=== PATIENT | female | born 1950 | race Caucasian/White ===

== ENCOUNTER 2017-07-04 14:42 | Outpatient (CLI) | payer OTHER ==
--- NOTE | 2017-07-04 16:01 | MRI ---
THORACIC SPINE MRI NONCONTRAST: CLINICAL HISTORY: Chronic mid thoracic spine pain. COMPARISON: No prior imaging comparison available. FINDINGS: Patient motion degrades image quality and limits assessment. There are multilevel disk bulges throug hout the thoracic spine effacing the ventral thecal sac. This is most pronounced at the T2-3 level w ith moderate central canal stenosis and ventral cord effacement. No additional areas of significant cord effacement are otherwise depicted. Limited evaluation of the cord signal due to the degree of patient motion. No obvious intrinsic expa nsile cord lesion is evident. No high-grade foraminal compromise of the thoracic spine. No acute ma rrow edema or disk space edema. No significant malalignment. The visualized paraspinal soft tissues are free from significant edema. IMPRESSION: Limited exam by patient motion. There is multilevel degenerative change most pronounced at T2-3 wher e disk bulge results in mild to moderate central canal stenosis, and ventral cord effacement. POS: [facility]
== END 2017-07-04 14:43 | disposition home or self-care (01) ==
LOC: SCSMRI 14:42
PROVIDERS: ATTEND Physical Medicine & Rehabilitation
DX: M54.6 Pain in thoracic spine (principal); G89.29 Other chronic pain; M51.24 Other intervertebral disc displacement, thoracic region; M47.894 Other spondylosis, thoracic region; M48.04 Spinal stenosis, thoracic region
CPT/HCPCS: 72146

== ENCOUNTER 2017-09-11 17:44 | Outpatient (CLI) | payer OTHER ==
--- NOTE | 2017-09-11 18:18 | RAD ---
TWO VIEWS OF THE CHEST: 09/11/17 COMPARISON: 03/01/14. HISTORY: Coarctation of aorta, chest pain. FINDINGS: No pneumothorax, pleural fluid, focal consolidation, or alveolar edema. The heart and mediastinal con tours are unremarkable. IMPRESSION: No acute findings. POS: [facility]
== END 2017-09-11 17:45 | disposition home or self-care (01) ==
LOC: SCSRAD 17:44
PROVIDERS: ATTEND Family Medicine
DX: I10 Essential (primary) hypertension (principal); Q25.1 Coarctation of aorta
CPT/HCPCS: 71046

== ENCOUNTER 2018-01-21 14:47 | Outpatient (CLI) | payer MEDICARE, OTHER ==
--- NOTE | 2018-01-21 15:40 | ULT ---
THYROID ULTRASOUND: 01/21/18 COMPARISON: None. HISTORY: Abnormal thyroid laboratory value. TECHNIQUE: Multiplanar hawkins scale and color doppler images obtained in a thyroid ultrasound. FINDINGS: There is a lesion in the right thyroid lobe with a benign appearing calcification measuring 1.2 cm in greatest dimension. This is well circumscribed and isoechoic. A smaller lesion is seen near the isth mus. The thyroid lobes measures 4.3 and 3.7 cm in length on the right and left, respectively. IMPRESSION: The largest right thyroid lesion is a TIRADS category 2 abnormality. POS: [facility]
== END 2018-01-21 14:48 | disposition home or self-care (01) ==
LOC: BICULT 14:47
PROVIDERS: ATTEND Internal Medicine Cardiovascular Disease
DX: E04.1 Nontoxic single thyroid nodule (principal); E07.9 Disorder of thyroid, unspecified
CPT/HCPCS: 76536

== ENCOUNTER 2018-06-03 15:28 | Outpatient (CLI) | payer OTHER ==
--- NOTE | 2018-06-04 11:14 | MMO ---
Bilateral MAMMO Bilat Screen [facility]. CLINICAL HISTORY: Patient is 67 years old and is seen for screening. The patient has no family history of breast cancer. The patient has no personal history of cancer. VIEWS: The views performed were: bilateral craniocaudal with tomosynthesis and bilateral mediolateral oblique with tomosynthesis. FILMS COMPARED: The present examination has been compared to prior imaging studies performed at [facility] on 07/15/2007 and 07/07/2013, and at [facility] on 03/14/2010, 03/29/2010 and 08/07/2011. MAMMOGRAM FINDINGS: There are scattered fibroglandular densities. There are benign appearing calcifications seen in both breasts. There are no suspicious masses, suspicious calcifications, or new areas of architectural distortion. IMPRESSION: THERE IS NO MAMMOGRAPHIC EVIDENCE OF MALIGNANCY. A ROUTINE FOLLOW-UP MAMMOGRAM IN 1 YEAR IS RECOMMENDED. THE RESULTS OF THIS EXAM WERE SENT TO THE PATIENT. ACR BI-RADS Category 2 - Benign finding MAMMOGRAPHY NOTE: 1. A negative mammogram report should not delay a biopsy if a dominant of clinically suspicious mass is present. 2. Approximately 10% to 15% of breast cancers are not detected by mammography. 3. Adenosis and dense breasts may obscure an underlying neoplasm.
== END 2018-06-03 15:29 | disposition home or self-care (01) ==
LOC: BICMAMMO 15:28
PROVIDERS: ATTEND Obstetrics & Gynecology
DX: Z12.31 Encounter for screening mammogram for malignant neoplasm of breast (principal)
CPT/HCPCS: 77063; 77067

== ENCOUNTER 2018-08-05 14:13 | Outpatient (CLI) | payer OTHER ==
--- NOTE | 2018-08-05 14:59 | ULT ---
Thyroid ultrasound. HISTORY: Thyroid nodules. Multiple longitudinal and transverse images of the thyroid glands are obtained using a multi hertz li near array transducer. Real-time color flow images obtained. The right thyroid lobe measures 4.9 x 1.3 x 1.7 cm while the left measures 4.0 x 1.2 x 1.3 cm. There is a partially calcified heterogeneous nodule in the lower pole of the right thyroid lobe measu ring 9 x 8 x 11 mm. This is unchanged since the previous exam. The nodule has mixed cystic and solid components (1), Hypoechoic (2) and calcifications associated wi th it (1) . This gives an overall total score of 4 and TI rads level TR4. As the lesion is less than 0.5 cm follow-up thyroid ultrasound in 6 months to confirm stability is recommended. IMPRESSION: TR 4- Stable thyroid right lower pole nodule not significantly changed since the previous exam. Repeat thyroid sonogram in 6 months recommended to confirm stability.
== END 2018-08-05 14:14 | disposition home or self-care (01) ==
LOC: BICULT 14:13
PROVIDERS: ATTEND Otolaryngology Plastic Surgery within the Head & Neck
DX: D49.7 Neoplasm of unspecified behavior of endocrine glands and other parts of nervous system (principal); E04.1 Nontoxic single thyroid nodule
CPT/HCPCS: 76536

== ENCOUNTER 2019-02-10 13:28 | Outpatient (CLI) | payer OTHER ==
--- NOTE | 2019-02-10 13:50 | RAD ---
XR Knee Lt 3 View HISTORY: Left knee pain FINDINGS: No fracture or dislocation is identified. Mild degenerative changes are present. Chondrocalcinosis is seen.
== END 2019-02-10 13:29 | disposition home or self-care (01) ==
LOC: SCSRAD 13:28
PROVIDERS: ATTEND Family Medicine
DX: M17.12 Unilateral primary osteoarthritis, left knee (principal); M25.562 Pain in left knee

== ENCOUNTER 2019-03-09 15:23 | Outpatient (CLI) | payer OTHER ==
--- NOTE | 2019-03-09 15:53 | RAD ---
Lumbar spine 2 views HISTORY: Low back pain. FINDINGS: There are 5 lumbar type vertebrae. Pedicles are intact. Leftward convex curvature on the fr ontal view. Vertebral body heights and alignment are maintained. Mild osteophytosis throughout the vertebral bodies. Prominent osteophytosis throughout the lower facets. Disc space narrowing and minimal degenerative retrolisthesis at the L1-2 level. Intimal degenerative retrolisthesis at the L2-3 level. Disc space narrowing and minimal degenerative spondylolisthesis at the L4-5 level. Calcification over the arterial structures. 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 No evidence of acute compr ession fracture. Atherosclerosis.
== END 2019-03-09 15:24 | disposition home or self-care (01) ==
LOC: SCSRAD 15:23
PROVIDERS: ATTEND Family Medicine
DX: M54.5 Low back pain (principal); I70.0 Atherosclerosis of aorta; M47.816 Spondylosis without myelopathy or radiculopathy, lumbar region
CPT/HCPCS: 72100

== ENCOUNTER 2020-06-28 16:19 | Outpatient (CLI) | payer MEDICARE, OTHER | END 2020-06-28 16:20 | disposition home or self-care (01) | LOC: BICMAMMO 16:19 | PROVIDERS: ATTEND Obstetrics & Gynecology | DX: Z12.31 Encounter for screening mammogram for malignant neoplasm of breast (principal); Z85.42 Personal history of malignant neoplasm of other parts of uterus | CPT/HCPCS: 77063; 77067 ==

== ENCOUNTER 2021-04-12 10:38 | Outpatient (CLI) | payer MEDICARE, OTHER | END 2021-04-12 10:39 | disposition home or self-care (01) | LOC: ULT 10:38 | PROVIDERS: ATTEND Family Medicine | DX: R10.11 Right upper quadrant pain (principal) | CPT/HCPCS: 76705 ==

== ENCOUNTER 2022-12-06 23:19 | Inpatient (IN) | payer MEDICARE ==
[~2022-12-06 23:19] MED LIST: Iopamidol-370 76% 500 ML MDV (1 ML CHARGE) ONE
[2022-12-06] MEDS ORDERED: Atropine Sulfate 1 mg/10 ml Syringe ONE (23:30)
[2022-12-06 23:45] LABS: #Basophils 0.1 thou/uL (0.0-0.2); #Eosinphils 0.8 thou/uL (0.0-0.7); #Monocytes 0.8 thou/uL (0.11-0.59); #Neutrophils 3.3 thou/uL (1.40-6.50); %Basophils 0.9 % (0.0-1.0); %Eosinophils 10.2 % (0.0-10.0); %Neutrophils 40.5 % (42.0-75.0); Hematocrit 30.7 % (36.0-47.0); Hemoglobin 9.6 g/dL (12.0-16.0); Mean Corpuscular HGB CONC 31.3 g/dL (32.0-36.0); Mean Corpuscular Hemoglobin 28.2 pg (27.0-31.0); Mean Corpuscular Volume 90.3 fl (78.0-98.0); Mean Platelet Volume 9.5 fL (7.4-10.4); Platelet Count 255 10x3/uL (130-400); RBC Distribution Width 16.1 % (11.5-14.5); White Blood Cell (WBC) Count 8.1 10x3/uL (4.8-10.8)
[2022-12-06 23:58] LABS: INR-International Normal Ratio 0.9; Prothrombin Time 12.5 sec (12.0-14.7)
[2022-12-07 00:11] LABS: Troponin I Less than 0.010 ng/mL (< 0.028)
[2022-12-07 00:14] LABS: ALT (SGPT) 9 U/L (8-55); AST (SGOT) 15 U/L (5-34); Albumin 3.6 g/dL (3.4-4.8); Alkaline Phosphatase 92 U/L (40-110); Anion Gap 12 mmol/L (10-20); BUN (Urea Nitrogen) 18 mg/dL (9.8-20.1); Bilirubin, Total 0.2 mg/dL (0.2-1.2); Calc. Creatinine Clearance 0 mL/min (70-130); Calcium 9.3 mg/dL (7.8-10.44); Carbon Dioxide 23 mmol/L (23-31); Chloride 102 mmol/L (98-107); Estimated GFR 59; Globulin 2.5 g/dL (2.4-3.5); Glucose 118 mg/dL (83-110); Potassium 4.1 mmol/L (3.5-5.1); Protein, Total 6.1 g/dL (5.8-8.1); Sodium 133 mmol/L (136-145)
[2022-12-07] MEDS ORDERED: Acetaminophen 500 MG TAB ONE ×2 (00:52→10:15)
[2022-12-07] MEDS ORDERED: Sodium Chloride 0.9% 1,000 ML IV SCH (01:30)
[2022-12-07 02:23] VITALS: BMI 19.7
[2022-12-07] MEDS ORDERED: hydrALAZINE 20 MG/ML VIAL SLOW IVP PRN (02:30)
[2022-12-07] MEDS ORDERED: Ondansetron ODT 4 MG TAB PO PRN (02:31)
[2022-12-07 02:37] LABS: Bacteria/HPF None Seen HPF (None Seen); Bilirubin Negative (Negative); Blood, Urine Negative (Negative); CAUTI Indications for Culture Alt mental st,lethar; Clarity Clear (Clear); Glucose, Urine (Dipstick) Normal (Negative); Ketone, Urine Negative (Negative); Leukocyte Negative Leu/uL (Negative); Nitrite Negative (Negative); Protein, Urine (Dipstick) Negative (Neg-Trace); RBC/HPF None Seen HPF (0-3); Specific Gravity, Urine 1.018 (1.002-1.036); Squamous Epithelial 0-3 HPF (0-3); Urobilinogen Normal mg/dL (Less than 2); WBC/HPF None Seen HPF (0-3)
[2022-12-07] MEDS ORDERED: Aspirin Chewable 81 MG TAB PO SCH (02:45)
[2022-12-07 02:55] LABS: Urine Culture Reflex No No
[2022-12-07] MEDS ORDERED: Lactated Ringer's 500 ML IV SCH (03:00)
[2022-12-07 04:06] LABS: #Basophils 0.1 thou/uL (0.0-0.2); #Eosinphils 0.8 thou/uL (0.0-0.7); #Monocytes 0.7 thou/uL (0.11-0.59); #Neutrophils 2.9 thou/uL (1.40-6.50); %Basophils 1.4 % (0.0-1.0); %Eosinophils 10.2 % (0.0-10.0); %Lymphocytes 38.4 % (21.0-51.0); %Neutrophils 39.6 % (42.0-75.0); Hemoglobin 9.8 g/dL (12.0-16.0); Mean Corpuscular HGB CONC 31.6 g/dL (32.0-36.0); Mean Corpuscular Hemoglobin 27.8 pg (27.0-31.0); Mean Corpuscular Volume 88.1 fl (78.0-98.0); Mean Platelet Volume 9.7 fL (7.4-10.4); Platelet Count 248 10x3/uL (130-400); RBC Distribution Width 15.9 % (11.5-14.5); Red Blood Cell (RBC) Count 3.52 mill/uL (4.20-5.40); White Blood Cell (WBC) Count 7.4 10x3/uL (4.8-10.8)
[2022-12-07] MEDS ORDERED: Aspirin Chewable 81 MG TAB ONE ×2 (04:23→08:56)
[2022-12-07 04:29] LABS: Anion Gap 11 mmol/L (10-20); BUN (Urea Nitrogen) 15 mg/dL (9.8-20.1); Calc. Creatinine Clearance 52 mL/min (70-130); Calcium 9.1 mg/dL (7.8-10.44); Carbon Dioxide 22 mmol/L (23-31); Cardiac Risk 2.5 (Less than 4.5); Chloride 104 mmol/L (98-107); Cholesterol 171 mg/dl (< 200 Desired); Estimated GFR 72; Glucose 116 mg/dL (83-110); HDL Cholesterol 68 mg/dL (>60 Neg Risk); LDL Cholesterol, Calculated 90 mg/dL; Potassium 4.3 mmol/L (3.5-5.1); Sodium 133 mmol/L (136-145); Triglycerides 64 mg/dL (Less than 150)
[2022-12-07 04:34] LABS: Troponin I Less than 0.010 ng/mL (< 0.028)
[2022-12-07] MEDS: Acetaminophen 325 MG TAB PO PRN ×2 (04:34→10:27)
[2022-12-07] MEDS ORDERED: Acetaminophen 325 MG TAB ONE ×2 (04:35→10:17)
[2022-12-07 06:56] LABS: Troponin I Less than 0.010 ng/mL (< 0.028)
[2022-12-07] MEDS ORDERED: Famotidine 20 MG TAB PO SCH (09:00)
[2022-12-07] MEDS: Aspirin 81 mg Enteric Coated Tablet PO SCH (09:00)
[2022-12-07] MEDS ORDERED: Nitroglycerin 0.4 MG TAB (25 Tab Bottle) SL PRN (10:05)
[2022-12-07] MEDS ORDERED: Nitroglycerin 0.4 MG TAB 1 EACH ONE (10:12)
[2022-12-07 11:12] LABS: Troponin I Less than 0.010 ng/mL (< 0.028)
[2022-12-07] MEDS: traMADol HCl 50 MG TAB PO PRN ×2 (11:50→21:36)
[2022-12-07] MEDS: Lorazepam 0.5 MG TAB PO PRN (12:43)
[2022-12-07 15:19] LABS: Troponin I Less than 0.010 ng/mL (< 0.028)
[2022-12-07] MEDS: fentaNYL 50 mcg/mL 1 mL Vial SLOW IVP PRN ×2 (16:37→23:36)
[2022-12-07 19:08] LABS: Troponin I 0.013 ng/mL (< 0.028)
[2022-12-07] MEDS: Atorvastatin Calcium 40 MG TAB PO SCH (19:51)
[2022-12-08 05:05] LABS: #Basophils 0.1 thou/uL (0.0-0.2); #Eosinphils 0.6 thou/uL (0.0-0.7); #Monocytes 0.8 thou/uL (0.11-0.59); #Neutrophils 7.6 thou/uL (1.40-6.50); %Basophils 0.7 % (0.0-1.0); %Eosinophils 5.4 % (0.0-10.0); %Lymphocytes 21.3 % (21.0-51.0); %Monocytes 7.2 % (0.0-10.0); Hematocrit 31.3 % (36.0-47.0); Hemoglobin 10.1 g/dL (12.0-16.0); Mean Corpuscular HGB CONC 32.3 g/dL (32.0-36.0); Mean Corpuscular Hemoglobin 28.1 pg (27.0-31.0); Mean Corpuscular Volume 87.2 fl (78.0-98.0); Mean Platelet Volume 9.9 fL (7.4-10.4); Platelet Count 292 10x3/uL (130-400); RBC Distribution Width 15.8 % (11.5-14.5); Red Blood Cell (RBC) Count 3.59 mill/uL (4.20-5.40); White Blood Cell (WBC) Count 11.7 10x3/uL (4.8-10.8)
[2022-12-08 05:30] LABS: Anion Gap 14 mmol/L (10-20); BUN (Urea Nitrogen) 13 mg/dL (9.8-20.1); Calc. Creatinine Clearance 56 mL/min (70-130); Carbon Dioxide 22 mmol/L (23-31); Chloride 103 mmol/L (98-107); Estimated GFR 74; Glucose 91 mg/dL (83-110); Potassium 3.5 mmol/L (3.5-5.1); Sodium 135 mmol/L (136-145)
[2022-12-08] MEDS: Aspirin 81 mg Enteric Coated Tablet PO SCH (09:46)
[2022-12-08] MEDS: Lisinopril 10 MG TAB PO SCH ×2 (09:46→20:32)
[2022-12-08] MEDS: hydrALAZINE 25 MG TAB PO SCH ×3 (09:46→20:32)
[2022-12-08] MEDS: Acetaminophen 325 MG TAB PO PRN ×3 (10:14→23:33)
[2022-12-08] MEDS: fentaNYL 50 mcg/mL 1 mL Vial SLOW IVP PRN (11:40)
[2022-12-08] MEDS: traMADol HCl 50 MG TAB PO PRN (16:10)
[2022-12-08] MEDS ORDERED: Metoclopramide HCl 10 MG/2 ML VIAL IVP SCH (16:30)
[2022-12-08] MEDS ORDERED: Ketorolac Tromethamine 30 MG/ML VIAL IVP SCH (16:30)
[2022-12-08] MEDS ORDERED: diphenhydrAMINE 25 MG CAP PO SCH (16:30)
[2022-12-08] MEDS: Sodium Chloride 0.9% 1,000 ML IV SCH (17:09)
[2022-12-08] MEDS: Atorvastatin Calcium 40 MG TAB PO SCH (20:32)
[2022-12-08] MEDS: Lorazepam 0.5 MG TAB PO PRN (23:37)
[2022-12-09] MEDS: traMADol HCl 50 MG TAB PO PRN (06:43)
[2022-12-09] MEDS: Sodium Chloride 0.9% 1,000 ML IV SCH (06:44)
[2022-12-09 07:46] LABS: #Basophils 0.1 thou/uL (0.0-0.2); #Eosinphils 0.1 thou/uL (0.0-0.7); #Monocytes 0.5 thou/uL (0.11-0.59); #Neutrophils 7.9 thou/uL (1.40-6.50); %Basophils 0.5 % (0.0-1.0); %Eosinophils 1.5 % (0.0-10.0); %Lymphocytes 8.2 % (21.0-51.0); %Monocytes 5.2 % (0.0-10.0); %Neutrophils 83.6 % (42.0-75.0); Hematocrit 35.5 % (36.0-47.0); Hemoglobin 11.4 g/dL (12.0-16.0); Mean Corpuscular HGB CONC 32.1 g/dL (32.0-36.0); Mean Corpuscular Hemoglobin 27.7 pg (27.0-31.0); Mean Corpuscular Volume 86.4 fl (78.0-98.0); Mean Platelet Volume 9.3 fL (7.4-10.4); Platelet Count 243 10x3/uL (130-400); RBC Distribution Width 16.1 % (11.5-14.5); Red Blood Cell (RBC) Count 4.11 mill/uL (4.20-5.40); White Blood Cell (WBC) Count 9.4 10x3/uL (4.8-10.8)
[2022-12-09 08:10] LABS: Anion Gap 14 mmol/L (10-20); BUN (Urea Nitrogen) 11 mg/dL (9.8-20.1); Calc. Creatinine Clearance 61 mL/min (70-130); Carbon Dioxide 21 mmol/L (23-31); Chloride 105 mmol/L (98-107); Estimated GFR 81; Glucose 127 mg/dL (83-110); Potassium 3.5 mmol/L (3.5-5.1); Sodium 136 mmol/L (136-145)
[2022-12-09] MEDS: Aspirin 81 mg Enteric Coated Tablet PO SCH (08:25)
[2022-12-09] MEDS: hydrALAZINE 25 MG TAB PO SCH (08:25)
[2022-12-09] MEDS: Lisinopril 10 MG TAB PO SCH (08:26)
[2022-12-09] MEDS: fentaNYL 50 mcg/mL 1 mL Vial SLOW IVP PRN (09:55)
[2022-12-09] MEDS ORDERED: Ibuprofen 200 MG TAB PO SCH (11:45)
[2022-12-09 12:24] VITALS: BP 160/78; TEMP 98.6
[2022-12-10] MEDS ORDERED: FLU VACC QS2023(65UP)/MF59C/PF 60 MCG/0.5 ML SYRINGE IM ONE (09:00)
== END 2022-12-09 14:32 | disposition home or self-care (01) | DRG 69 ==
LOC: ERS 23:19 → ERHOLD 12-07 01:13 → 2SE 12-07 13:19 → OBSVTOIN 12-08 11:36
PROVIDERS: ADMIT Student in an Organized Health Care Education/Training Program; ATTEND Internal Medicine
DX: G45.9 Transient cerebral ischemic attack, unspecified (principal); G91.2 (Idiopathic) normal pressure hydrocephalus; R47.01 Aphasia; E87.1 Hypo-osmolality and hyponatremia; R00.1 Bradycardia, unspecified; R29.90 Unspecified symptoms and signs involving the nervous system; R20.0 Anesthesia of skin; J44.9 Chronic obstructive pulmonary disease, unspecified; D64.9 Anemia, unspecified; G20.A1 Parkinson's disease without dyskinesia, without mention of fluctuations; G31.84 Mild cognitive impairment of uncertain or unknown etiology; I10 Essential (primary) hypertension; Z88.5 Allergy status to narcotic agent; Z79.899 Other long term (current) drug therapy; Z90.89 Acquired absence of other organs; Z90.49 Acquired absence of other specified parts of digestive tract; Z90.710 Acquired absence of both cervix and uterus; R29.810 Facial weakness; R47.1 Dysarthria and anarthria; E78.5 Hyperlipidemia, unspecified; I35.1 Nonrheumatic aortic (valve) insufficiency
CPT/HCPCS: 36415; 36416; 70450; 70496; 70498; 70551; 71045; 80048; 80053; 80061; 81001; 83605; 83735; 84443; 84484; 85025; 85610; 85730; 93005; 93010; 93306; 96374; 96375; 96376; G0378; J0461; J1885; J2765; J3010; J7050; Q9967